=== PATIENT | female | born 1975 | race Two or more races ===

== ENCOUNTER 2021-08-10 07:47 | Day surgery (SDC) | payer MEDICAID ==
[~2021-08-10] VITALS: Ht 160 cm; Wt 90.4 kg
[2021-08-10] MEDS ORDERED: ACET650S21 PO (08:21)
[2021-08-10] MEDS ORDERED: SERT50TA28 PO (08:21)
[2021-08-10 08:32] VITALS: BP 106/73
[2021-08-10] MEDS ORDERED: CEFAZOLIN PMX 1GM/50ML 50 ML ONE (08:44)
[2021-08-10] MEDS ORDERED: CEFAZOLIN PMX 1GM/50ML 50 ML IV ONE (09:00)
[2021-08-10] MEDS ORDERED: NALOXONE 1 MG/ML, 2ML ONE (09:24)
[2021-08-10] MEDS ORDERED: FLUMAZENIL 0.1 MG/1 ML, 5ML ONE (09:24)
[2021-08-10] MEDS ORDERED: MIDAZOLAM 1 MG/ML, 5ML ONE (09:24)
[2021-08-10] MEDS ORDERED: FENTANYL PF 100 MCG/2ML ONE (09:24)
[2021-08-10] MEDS ORDERED: LIDOCAINE 1%, 10ML ONE (09:40)
[2021-08-10] MEDS ORDERED: LIDOCAINE 1%, 20ML ONE (09:41)
[2021-08-10] MEDS ORDERED: HYDROcodone/APAP 5/325 TABLET ONE (12:09)
[2021-08-10] MEDS ORDERED: HYDROcodone/APAP 5/325 TABLET PO ONE (12:30)
== END 2021-08-10 12:30 | disposition home or self-care (01) ==
LOC: RAD 07:47
PROVIDERS: ATTEND Pathology Hematology
DX: C50.412 Malignant neoplasm of upper-outer quadrant of left female breast (principal); F32.9 Major depressive disorder, single episode, unspecified; Z17.1 Estrogen receptor negative status [ER-]; Z79.899 Other long term (current) drug therapy; Z87.891 Personal history of nicotine dependence
CPT/HCPCS: 36561; 76937; 77001; 99156; 99157; C1788; J0690; J1642; J2250; J3010; J2310